=== PATIENT | female | born 1955 | race Caucasian/White ===

== ENCOUNTER 2023-10-26 16:44 | Emergency (ER) | payer MEDICARE, OTHER, SELFPAY ==
[2023-10-26 16:48] VITALS: BP 128/73
[2023-10-26] MEDS: COMPAZINE 10 MG IV (17:47)
[2023-10-26] MEDS: MORPHINE SULFATE 2 MG IV (17:48)
[2023-10-26] MEDS: DECADRON 10 MG PO (18:46)
--- NOTE | 2023-10-26 20:05 | ED.MUSCINJ ---
HPI-Injury
General
Chief Complaint: Musculo-Skeletal Complaint
Source: patient
Exam Limitations: none
Time Seen by Provider: 10/26/23 17:25
Nursing documentation reviewed up to this point in time: agreed with
Travel History
Have you had any contact with someone who has COVID-19?: No
Do you have any symptoms of coronavirus? Fever > 100 degrees, chills, cough, shortness of breath, sore throat, loss of taste or smell, muscle aches, or headache?: No
History of Present Illness-Injury
Is this injury a work related problem?: No
Is pt an associate of [facility]?: No
Initial Injury comments:
Patient to ED with complaint of left lateral hip pain x 2 weeks. No history of trauma. Had LTHR 2 years ago. No issues until 2 weeks ago. States leg is giving out due to the pain. Brought to ED by spouse for eval.
Past History
Past History
ED Past Medical History: Asthma, Fibromyalgia, GERD, HTN, Valvular disease (MR), Psychiatric (anxiety), Other (Mitral regurgitation) and Other (DVT, migraine headaches)
ED Past Surgical History: Appendectomy, Cardiac (MV replacement ([facility])) and Orthopedic
Social History
Tobacco: Smoker (Occasional cigarette use)
Alcohol: Daily (1-2 glasses of wine with dinner)
Drug: None
Personal:
Living: with family
Employment: Employed
Family History
Family History: Hypertension
Review of Systems
Review of Systems
Allergies reviewed?: Yes
All Other Systems: ROS reviewed and negative except as documented in HPI and ROS
Constitutional: Reports no symptoms
Musculoskeletal: Reports joint pain (pain to left lateral hip)
Skin: Reports no symptoms
Neurological: Reports no symptoms
Psychiatric: Reports no symptoms
Musculoskeletal Injury Exam
Musculoskeletal Injury Exam
Left Lateral Hip:
Pain with Movement?: Moderate
Tender to palpation?: Moderate
Soft tissue swelling?: None
External deformity and angulation?: None
Joint effusion?: None
Contusion?: None
Hematoma-local bleeding into tissue?: None
Strain- Sprain- Tear (Connective tissue injury)?: None
Crepitus with movement?: No
Joint instability?: No
Malalignment/deformity?: No
Range of motion: Full
Distal skin color and temperature: normal-warm & good color
Capillary Refill: normal
Normal distal neurovascular exam?: Yes
Peripheral Pulses: posterior tibial (left): 3+ and dorsalis pedis (left): 3+
Phy Exam
General Physical Exam
General Presentation: well appearing and mild distress
General age: appears stated age
General Skin: warm and dry
General Habitus: normal
General Mental: alert
Musculoskeletal Exam
Musculoskeletal Exam: full ROM, neuro vasc intact and other (No redness or swelling to left hip. No skin rash.)
Skin Exam
Skin Exam: normal color, warm/dry and no rash
Psychiatric Exam
Psychiatric Exam: normal mood/affect
Injury Course
Orders/Labs/Results
Orders:
Orders
10/26/23 17:30
Morphine Sulfate 2 mg IV NOW STA
Prochlorperazine [Compazine] 10 mg IV NOW STA
10/26/23 17:31
Hip, Left 2-3 Views [CR Hip - LT w/wo Pel 2-3 Vw*] Urgent
Comment:
Reason For Exam: pain
Include a pelvis x-ray?: Yes
10/26/23 18:24
Dexamethasone Pf [Decadron] 10 mg PO NOW STA
*Radiology
Radiology exam reviewed: radiology read reviewed
*Pulse Oximetry
Patient hypoxic: no
*Critical Care Note
Total Time (30-74mins, 75-104mins- exclusive of procedures): Not Applicable
Update Note
Update Note:
Improved with pain medication. She is discharged home and will follow upw [facility] ortho this week.
ED Attending Note
-
Portions of this chart may have been created with voice recognition software.� Occasional wrong word or��sound alike� substitutions may have occurred due to the inherent limitations of voice recognition software.
Discharge Plan
Departure
Patient Disposition: Home (Routine Discharge)
Date of Disposition: 10/26/23
Time of Disposition: 18:24
Patient with high blood pressure during this ER visit?: No
Condition: Good
Covid-19: Not Applicable
Discharge Problem:
Bursitis, hip
Instructions: Hip Bursitis (DC), Using Cold for Pain
Prescriptions:
New
prednisone 20 mg tablet
40 mg PO DAILY Qty: 8 0RF
hydromorphone [Dilaudid] 2 mg tablet
2 mg PO Q6H PRN (Reason: Pain) Qty: 8 0RF
prochlorperazine maleate [Compazine] 10 mg tablet
10 mg PO TID PRN (Reason: nausea and vomiting) Qty: 6 0RF
No Action
Combivent Respimat 1 PUFF mist
2 puff inhalation DAILYPRN PRN (Reason: SHORTNESS OF BREATH)
amlodipine 5 MG tablet
5 mg PO DAILY
gabapentin 300 MG capsule
1,200 mg PO HS
gabapentin 300 MG capsule
600 mg PO DAILY
escitalopram oxalate 20 MG tablet
20 mg PO DAILY
warfarin [Jantoven] 2 MG tablet
4 mg PO DAILY
Patient Comments:
Per patient: she tests her INR at home and calls in to get adjusted dosing - very inconconsistent. Goal INR 3 - 3.5 per patient
esomeprazole magnesium [Nexium] 40 MG capsule,delayed release(DR/EC)
40 mg PO DAILYPRN PRN (Reason: gerd)
alprazolam 0.25 MG tablet
0.25 mg PO BIDPRN PRN (Reason: anxiety)
Patient Comments:
11/10/2020: last filled 08/06/20, 30 tabs for 15 days from [facility]
aspirin 81 MG tablet,chewable
81 mg PO DAILY 0RF
enoxaparin 60 MG/0.6 ML syringe
60 mg SC Q12H 2 Days Qty: 4 0RF
Rx Instructions:
Preop
hydromorphone [Dilaudid] 2 mg tablet
2 mg PO Q6H PRN (Reason: pain) Qty: 8 0RF
cetirizine [Zyrtec] 10 mg Tablet
10 mg PO DAILY
acetaminophen 500 mg Tablet
1,000 mg PO Q6H PRN (Reason: pain)
doxycycline hyclate 100 mg tablet
100 mg PO DAILY
clonazepam 0.5 mg tablet
0.5 mg PO TID PRN (Reason: anxiety) Qty: 20 0RF
Referrals:
Kurt Priest MD [Active] - Call in 1-3 days for appt
Interventions
Interventions:
*Risk Screen - Suicide Last Done: 10/26/23 18:00
*General Assessment Last Done: 10/26/23 18:00
*Neglect/Abuse Screening Last Done: 10/26/23 18:00
ED- Fall Risk Assessment Last Done: 10/26/23 18:00
*ED COVID-19 Vaccine History Last Done: 10/26/23 16:48
*Nursing Disposition Last Done: 10/26/23 19:01
ED-Musculoskeletal Assessment Last Done: 10/26/23 18:00
Discharge Date and Time
Discharge Date/Time: 10/26/23 19:02
Print Language: UZBEK
== END 2023-10-26 19:02 | disposition home or self-care (01) ==
LOC: EMR 16:44
PROVIDERS: EMERGENCY PHYSICIAN Emergency Medicine; FAMILY PHYSICIAN Internal Medicine
DX: M70.72 Other bursitis of hip, left hip (principal); J45.909 Unspecified asthma, uncomplicated; M79.7 Fibromyalgia; K21.9 Gastro-esophageal reflux disease without esophagitis; I10 Essential (primary) hypertension; I38 Endocarditis, valve unspecified; F41.9 Anxiety disorder, unspecified
CPT/HCPCS: 99283; 96374; 96375; 73502

== ENCOUNTER 2024-02-11 13:05 | Emergency (ER) | payer MEDICARE, OTHER, SELFPAY ==
[2024-02-11 13:07] VITALS: BP 135/70
[2024-02-11 15:22] VITALS: BMI 24.6
[2024-02-11] MEDS: DECADRON 10 MG IV (15:34)
[2024-02-11] MEDS: ZOFRAN 4 MG IV (15:34)
[2024-02-11] MEDS: DILAUDID 0.5 MG IV (15:34)
[2024-02-11 15:40] VITALS: BP 143/74
[2024-02-11 15:49] LABS: % Basophils 0.6 % (0-2); % Eosinophils 1.4 % (0-6); % Immature Granulocytes 0.3 % (0-0.5); % Monocytes 8.2 % (1.7-9.3); % Neutrophils 67.5 % (42.2-75.2); Absolute Basophils 0.1 10^3/uL (0-0.2); Absolute Eosinophils 0.1 10^3/uL (0-0.7); Absolute Lymphocytes 1.7 10^3/uL (1.2-3.4); Absolute Monocytes 0.6 10^3/uL (0.1-0.6); Absolute Neutrophils 5.3 10^3/uL (1.4-6.5); Hematocrit 37.4 % (37.0-47.0); Hemoglobin 12.9 g/dL (12.0-16.0); Mean Corp Hgb Conc. 34.5 g/dL (33.0-37.0); Mean Corpuscular Hgb 32.7 pg (27.0-31.0); Mean Corpuscular Volume 94.7 fL (81.0-99.0); Nucleated Red Blood Cells % 0 %; Platelet Count 397 10^3/uL (130-400); Red Blood Cell Count 3.95 10^6/uL (4.20-5.40); Red Cell Dist. Width 12.3 % (11.5-14.5); White Blood Cell Count 7.8 10^3/uL (4.8-10.8)
[2024-02-11 16:00] VITALS: BP 127/65
[2024-02-11 16:04] LABS: ALT (SGPT) 17 U/L (0-35); AST (SGOT) 28 U/L (14-36); Albumin 4.7 g/dl (3.5-5.0); Alkaline Phosphatase 84 U/L (38-126); Blood Urea Nitrogen 14 mg/dl (7-17); Calcium 10.2 mg/dl (8.4-10.2); Carbon Dioxide 27 mmol/L (22-30); Chloride 102 mmol/L (98-107); Estimated Creatinine Clearance 76 ml/min; Glucose 92 mg/dl (70-99); Potassium 4.3 mmol/L (3.5-5.1); Sodium 140 mmol/L (135-145); Total Protein 7.1 g/dl (6.3-8.2); eGFR > 60.00
--- NOTE | 2024-02-11 21:23 | ED.MUSCINJ ---
HPI-Injury
General
Chief Complaint: Fall
Source: patient
Exam Limitations: none
Time Seen by Provider: 02/11/24 15:16
Nursing documentation reviewed up to this point in time: agreed with
History of Present Illness-Injury
Is this injury a work related problem?: No
Is pt an associate of [facility]?: No
Initial Injury comments:
Patient reports trip and fall 1 week ago. Since then she has progressively worse pain to left hip/buttock radiating down right leg. Brought to ED by spouse for eval.
Past History
Past History
ED Past Medical History: Asthma, Fibromyalgia, GERD, HTN, Valvular disease (MR), Psychiatric (anxiety), Other (Mitral regurgitation) and Other (DVT, migraine headaches)
ED Past Surgical History: Appendectomy, Cardiac (MV replacement ([facility])) and Orthopedic
Social History
Tobacco: Smoker (Occasional cigarette use)
Alcohol: Daily (1-2 glasses of wine with dinner)
Drug: None
Personal:
Living: with family
Employment: Employed
Family History
Family History: Hypertension
Musculoskeletal Injury Exam
Musculoskeletal Injury Exam
Left Hip:
Pain with Movement?: Moderate
Tender to palpation?: Moderate
Soft tissue swelling?: None
External deformity and angulation?: None
Joint effusion?: None
Contusion?: Moderate
Hematoma-local bleeding into tissue?: None
Strain- Sprain- Tear (Connective tissue injury)?: Moderate
Crepitus with movement?: No
Joint instability?: No
Malalignment/deformity?: No
Range of motion: Full
Distal skin color and temperature: normal-warm & good color
Capillary Refill: normal
Normal distal neurovascular exam?: Yes
Peripheral Pulses: posterior tibial (left): 3+ and dorsalis pedis (left): 3+
Phy Exam
General Physical Exam
General Presentation: well appearing and mild distress
General age: appears stated age
General Skin: warm and dry
General Habitus: normal
General Mental: alert
Musculoskeletal Exam
Musculoskeletal Exam: full ROM, neuro vasc intact and other (NO swelling or bruising to left hip/buttock)
Skin Exam
Skin Exam: normal color, warm/dry and no rash
Psychiatric Exam
Psychiatric Exam: normal mood/affect
Injury Course
Orders/Labs/Results
Orders:
Orders
02/11/24 15:22
Dexamethasone Sod Phosphate [Decadron] 10 mg IV NOW STA
Ondansetron Injectable [Zofran] 4 mg IV NOW STA
02/11/24 15:23
HYDROmorphone [Dilaudid] 0.5 mg IV NOW STA
02/11/24 15:24
Hip, Left 2-3 Views [CR Hip - LT w/wo Pel 2-3 Vw*] Urgent
Comment:
Reason For Exam: fall
Include a pelvis x-ray?: Yes
02/11/24 15:26
Complete Blood Count/With Diff Urgent
Comprehensive Metabolic Panel Urgent
Abnormal Lab Results
02/11/24
15:26
RBC 3.95 L 10^6/uL
(4.20-5.40)
MCH 32.7 H pg
(27.0-31.0)
02/11/24 15:26
02/11/24 15:26
*Radiology
Radiology exam reviewed: radiology read reviewed
*Pulse Oximetry
Patient hypoxic: no
*Critical Care Note
Total Time (30-74mins, 75-104mins- exclusive of procedures): Not Applicable
ED Attending Note
-
Portions of this chart may have been created with voice recognition software.� Occasional wrong word or��sound alike� substitutions may have occurred due to the inherent limitations of voice recognition software.
Discharge Plan
Departure
Patient Disposition: Home (Routine Discharge)
Date of Disposition: 02/11/24
Time of Disposition: 17:29
Patient with high blood pressure during this ER visit?: No
Condition: Good
Covid-19: Not Applicable
Discharge Problem:
Sciatic nerve pain
Instructions: Sciatica (DC), Preventing falls in adults, Using Cold for Pain
Prescriptions:
New
hydromorphone [Dilaudid] 2 mg tablet
2 mg PO Q6H PRN (Reason: Pain) Qty: 8 0RF
prednisone 20 mg tablet
40 mg PO DAILY Qty: 8 0RF
No Action
Combivent Respimat 1 PUFF mist
2 puff inhalation DAILYPRN PRN (Reason: SHORTNESS OF BREATH)
amlodipine 5 MG tablet
5 mg PO DAILY
gabapentin 300 MG capsule
1,200 mg PO HS
gabapentin 300 MG capsule
600 mg PO DAILY
escitalopram oxalate 20 MG tablet
20 mg PO DAILY
warfarin [Jantoven] 2 MG tablet
4 mg PO DAILY
Patient Comments:
Per patient: she tests her INR at home and calls in to get adjusted dosing - very inconconsistent. Goal INR 3 - 3.5 per patient
esomeprazole magnesium [Nexium] 40 MG capsule,delayed release(DR/EC)
40 mg PO DAILYPRN PRN (Reason: gerd)
alprazolam 0.25 MG tablet
0.25 mg PO BIDPRN PRN (Reason: anxiety)
Patient Comments:
11/10/2020: last filled 08/06/20, 30 tabs for 15 days from [facility]
aspirin 81 MG tablet,chewable
81 mg PO DAILY 0RF
enoxaparin 60 MG/0.6 ML syringe
60 mg SC Q12H 2 Days Qty: 4 0RF
Rx Instructions:
Preop
hydromorphone [Dilaudid] 2 mg tablet
2 mg PO Q6H PRN (Reason: pain) Qty: 8 0RF
cetirizine [Zyrtec] 10 mg Tablet
10 mg PO DAILY
acetaminophen 500 mg Tablet
1,000 mg PO Q6H PRN (Reason: pain)
doxycycline hyclate 100 mg tablet
100 mg PO DAILY
clonazepam 0.5 mg tablet
0.5 mg PO TID PRN (Reason: anxiety) Qty: 20 0RF
prednisone 20 mg tablet
40 mg PO DAILY Qty: 8 0RF
hydromorphone [Dilaudid] 2 mg tablet
2 mg PO Q6H PRN (Reason: Pain) Qty: 8 0RF
prochlorperazine maleate [Compazine] 10 mg tablet
10 mg PO TID PRN (Reason: nausea and vomiting) Qty: 6 0RF
Referrals:
Giulia Lindo MD [Family Provider] - Follow up in 2-3 days
Interventions
Interventions:
*Risk Screen - Suicide Last Done: 02/11/24 15:58
*General Assessment Last Done: 02/11/24 15:22
*Neglect/Abuse Screening Last Done: 02/11/24 15:58
ED- Fall Risk Assessment Last Done: 02/11/24 14:55
*ED COVID-19 Vaccine History Last Done: 02/11/24 15:58
*Nursing Disposition Last Done: 02/11/24 17:45
ED-Musculoskeletal Assessment Last Done: 02/11/24 14:55
ED- Neurological Assessment Last Done: 02/11/24 14:55
ED-Skin Assessment Last Done: 02/11/24 14:55
Discharge Date and Time
Discharge Date/Time: 02/11/24 17:45
Print Language: PALAUAN
== END 2024-02-11 17:45 | disposition home or self-care (01) ==
LOC: EMR 13:05
PROVIDERS: Nurse Practitioner; EMERGENCY PHYSICIAN Emergency Medicine; FAMILY PHYSICIAN Internal Medicine
DX: M54.32 Sciatica, left side (principal); I10 Essential (primary) hypertension; J45.909 Unspecified asthma, uncomplicated; K21.9 Gastro-esophageal reflux disease without esophagitis; Z86.718 Personal history of other venous thrombosis and embolism; M79.7 Fibromyalgia; F17.210 Nicotine dependence, cigarettes, uncomplicated
CPT/HCPCS: 99284; 96374; 96375; 73502; 80053; 85025

== ENCOUNTER → 2024-02-19 12:13 | Outpatient (REF) | payer MEDICARE, OTHER, SELFPAY ==
[2024-02-19 13:04] LABS: % Basophils 0.1 % (0-2); % Immature Granulocytes 0.4 % (0-0.5); % Lymphocytes 9.8 % (20.5-51.1); % Monocytes 4.3 % (1.7-9.3); % Neutrophils 85.4 % (42.2-75.2); Absolute Lymphocytes 0.9 10^3/uL (1.2-3.4); Absolute Monocytes 0.4 10^3/uL (0.1-0.6); Absolute Neutrophils 8.1 10^3/uL (1.4-6.5); Hematocrit 39.4 % (37.0-47.0); Hemoglobin 13.2 g/dL (12.0-16.0); Mean Corp Hgb Conc. 33.5 g/dL (33.0-37.0); Mean Corpuscular Hgb 32.2 pg (27.0-31.0); Mean Corpuscular Volume 96.1 fL (81.0-99.0); Mean Platelet Volume 10.9 fL (7.4-10.4); Nucleated Red Blood Cells % 0 %; Platelet Count 434 10^3/uL (130-400); White Blood Cell Count 9.4 10^3/uL (4.8-10.8)
[2024-02-19 13:40] LABS: Albumin 4.8 g/dl (3.5-5.0); Blood Urea Nitrogen 18 mg/dl (7-17); Calcium 10.5 mg/dl (8.4-10.2); Carbon Dioxide 27 mmol/L (22-30); Chloride 102 mmol/L (98-107); Glucose 112 mg/dl (70-99); Phosphorus 3.2 mg/dl (2.5-4.5); Potassium 5.6 mmol/L (3.5-5.1); Sodium 139 mmol/L (135-145); Total Cholesterol 299 mg/dl (50-199); Triglyceride 126 mg/dl (10-149); Very Low Density Lipoprotein 25 mg/dl (0-30); eGFR > 60.00
[2024-02-19 13:51] LABS: HDL Cholesterol 132 mg/dl; LDL Cholesterol, Calculated 142 mg/dl
== END ==
LOC: RCS 12:13
PROVIDERS: ATTENDING PHYSICIAN Internal Medicine Cardiovascular Disease; FAMILY PHYSICIAN Internal Medicine
DX: R00.2 Palpitations (principal); Z95.2 Presence of prosthetic heart valve; Z79.01 Long term (current) use of anticoagulants; I34.0 Nonrheumatic mitral (valve) insufficiency; I10 Essential (primary) hypertension; Z01.89 Encounter for other specified special examinations
CPT/HCPCS: 36415; 80061; 80069; 85025; 93225; 93226

== ENCOUNTER 2024-03-09 12:51 | Emergency (ER) | payer MEDICARE, OTHER, SELFPAY ==
[2024-03-09 12:56] VITALS: BP 133/77
[2024-03-09] MEDS: DECADRON 10 MG IV (14:50)
[2024-03-09] MEDS: DILAUDID 1 MG IV (14:51)
[2024-03-09 15:00] LABS: % Basophils 0.4 % (0-2); % Eosinophils 1.8 % (0-6); % Immature Granulocytes 0.4 % (0-0.5); % Lymphocytes 17.4 % (20.5-51.1); % Monocytes 7.2 % (1.7-9.3); % Neutrophils 72.8 % (42.2-75.2); Absolute Eosinophils 0.2 10^3/uL (0-0.7); Absolute Lymphocytes 1.6 10^3/uL (1.2-3.4); Absolute Monocytes 0.7 10^3/uL (0.1-0.6); Absolute Neutrophils 6.5 10^3/uL (1.4-6.5); Hematocrit 37.8 % (37.0-47.0); Hemoglobin 13.1 g/dL (12.0-16.0); Mean Corp Hgb Conc. 34.7 g/dL (33.0-37.0); Mean Corpuscular Volume 95.2 fL (81.0-99.0); Mean Platelet Volume 10.6 fL (7.4-10.4); Nucleated Red Blood Cells % 0 %; Platelet Count 276 10^3/uL (130-400); Red Blood Cell Count 3.97 10^6/uL (4.20-5.40); Red Cell Dist. Width 12.8 % (11.5-14.5)
[2024-03-09 15:04] LABS: INR 4.01; PT 39.1 Sec (11.4-14.6)
[2024-03-09 15:18] LABS: C-Reactive Protein < 5.00 mg/L (0.0-10.00)
[2024-03-09 15:22] LABS: Blood Urea Nitrogen 23 mg/dl (7-17); Carbon Dioxide 26 mmol/L (22-30); Chloride 105 mmol/L (98-107); Glucose 92 mg/dl (70-99); Sodium 140 mmol/L (135-145); eGFR > 60.00
[2024-03-09 15:41] LABS: ALT (SGPT) 25 U/L (0-35); AST (SGOT) 29 U/L (14-36); Albumin 4.5 g/dl (3.5-5.0); Alkaline Phosphatase 84 U/L (38-126); Direct Bilirubin 0.2 mg/dl (0.0-0.4); Potassium 4.3 mmol/L (3.5-5.1); Total Bilirubin 2.3 mg/dl (0.2-1.3); Total Protein 6.8 g/dl (6.3-8.2)
[2024-03-09 15:46] LABS: Erythrocyte Sed Rate 15 mm/hour (0-20)
--- NOTE | 2024-03-09 18:07 | ED.GENMED ---
History of Present Illness
General
Chief Complaint: Back Pain
Source: patient
Exam Limitations: none
Time Seen by Provider: 03/09/24 14:02
History of Present Illness
History of Present Illness:
69-year-old female presents complaining of left hip pain and groin pain occasion the pain radiates to the foot. She also notes a slight amount of lower back pain. No bowel or bladder dysfunction. She is due to see orthopedics and due for an MRI
in 13 days. She states her pain is too significant to wait that long. She denies any bowel or bladder dysfunction. No fever. She does note she fell 2 days ago.
Past History
Past History
ED Past Medical History: Asthma, Fibromyalgia, GERD, HTN, Valvular disease (MR), Psychiatric (anxiety), Other (Mitral regurgitation) and Other (DVT, migraine headaches)
ED Past Surgical History: Appendectomy, Cardiac (MV replacement ([facility])) and Orthopedic
Social History
Tobacco: Smoker (Occasional cigarette use)
Alcohol: Daily (1-2 glasses of wine with dinner)
Drug: None
Personal:
Living: with family
Employment: Employed
Family History
Family History: Hypertension
Phy Exam
Physical Exam
Physical Exam:
General: Well-appearing female no acute respiratory
HEENT: Normocephalic atraumatic
Heart: Regular rate and rhythm no murmur
Lungs: Clear no wheeze
Musculoskeletal exam: Left leg tender anteriorly over the hip as well as laterally over the hip.Lumbar spine is nontender to palpation
Vascular: 2+ dorsalis pedis pulse left foot
Course
Orders/Labs/Results
Orders:
Orders
03/09/24 14:29
CT Pelvis With Iv Contrast Urgent
Comment:
Reason For Exam: left hip pain, swelling
Dexamethasone Sod Phosphate [Decadron] 10 mg IV NOW STA
HYDROmorphone [Dilaudid] 1 mg IV NOW STA
03/09/24 14:40
Basic Metabolic Panel Urgent
CRP [C-Reactive Protein] Urgent
Complete Blood Count/With Diff Urgent
Sed Rate [Erythrocyte Sed Rate] Urgent
03/09/24 14:47
PT/INR [Prothrombin Time] Urgent
03/09/24 15:26
Gvyub-Wckk-Bryyuhn Urgent
Potassium Urgent
Abnormal Lab Results
03/09/24 03/09/24 03/09/24
14:40 14:47 15:26
RBC 3.97 L 10^6/uL
(4.20-5.40)
MCH 33.0 H pg
(27.0-31.0)
MPV 10.6 H fL
(7.4-10.4)
Absolute Monos (auto) 0.7 H 10^3/uL
(0.1-0.6)
Lymphocytes % 17.4 L %
(20.5-51.1)
PT 39.1 H Sec
(11.4-14.6)
BUN 23 H mg/dl
(7-17)
Total Bilirubin 2.3 H mg/dl
(0.2-1.3)
03/09/24 14:40
03/09/24 15:26
Vital Signs
Initial and Last Documented VS:
Initial Vital Signs
Temp Pulse Resp BP Pulse Ox
98.0 F 86 16 133/77 98
03/09/24 12:56 03/09/24 12:56 03/09/24 12:56 03/09/24 12:56 03/09/24 12:56
Last Documented Vital Signs
Temp Pulse Resp BP Pulse Ox
98.0 F 86 16 133/77 98
03/09/24 12:56 03/09/24 12:56 03/09/24 12:56 03/09/24 12:56 03/09/24 12:56
MDM/Problems Addressed
Differential Diagnosis Includes:
Patient with left hip and leg pain. Question inflammatory condition such as bursitis versus fracture versus radiculopathy. Do not suspect septic arthritis given lack of fever. Will check labs and inflammatory markers. CT of the pelvis pending.
*Critical Care Note
Total Time (30-74mins, 75-104mins- exclusive of procedures): Not Applicable
Update Note
Update Note:
CT of pelvis negative for acute finding. Labs reviewed. INR is 4. Patient notified of her INR. Patient feeling much better after medication here. Will provide walker for patient. She will continue to follow-up orthopedics. Will add Flexeril
and prednisone to her regimen at home
ED Attending Note
-
Portions of this chart may have been created with voice recognition software.� Occasional wrong word or��sound alike� substitutions may have occurred due to the inherent limitations of voice recognition software.
Discharge Plan
Departure
Patient Disposition: Home (Routine Discharge)
Date of Disposition: 03/09/24
Time of Disposition: 18:07
Patient with high blood pressure during this ER visit?: No
Discharge Problem:
Acute hip pain
Instructions: Sciatica (DC), Muscle and bone pain - Discharge instructions
Prescriptions:
New
cyclobenzaprine 10 mg tablet
10 mg PO TID PRN (Reason: spasm) Qty: 10 0RF
prednisone 10 mg Tablet
See Rx Instructions .ROUTE .COMPLEX Qty: 30 0RF
Rx Instructions:
Take By Mouth:
40 mg daily x3 days, 30 mg daily x3 days,
20 mg daily x3 days, 10 mg daily x3 days.
No Action
Combivent Respimat 1 PUFF mist
2 puff inhalation DAILYPRN PRN (Reason: SHORTNESS OF BREATH)
amlodipine 5 MG tablet
5 mg PO DAILY
gabapentin 300 MG capsule
1,200 mg PO HS
gabapentin 300 MG capsule
600 mg PO DAILY
escitalopram oxalate 20 MG tablet
20 mg PO DAILY
warfarin [Jantoven] 2 MG tablet
4 mg PO DAILY
Patient Comments:
Per patient: she tests her INR at home and calls in to get adjusted dosing - very inconconsistent. Goal INR 3 - 3.5 per patient
esomeprazole magnesium [Nexium] 40 MG capsule,delayed release(DR/EC)
40 mg PO DAILYPRN PRN (Reason: gerd)
alprazolam 0.25 MG tablet
0.25 mg PO BIDPRN PRN (Reason: anxiety)
Patient Comments:
11/10/2020: last filled 08/06/20, 30 tabs for 15 days from [facility]
aspirin 81 MG tablet,chewable
81 mg PO DAILY 0RF
enoxaparin 60 MG/0.6 ML syringe
60 mg SC Q12H 2 Days Qty: 4 0RF
Rx Instructions:
Preop
hydromorphone [Dilaudid] 2 mg tablet
2 mg PO Q6H PRN (Reason: pain) Qty: 8 0RF
cetirizine [Zyrtec] 10 mg Tablet
10 mg PO DAILY
acetaminophen 500 mg Tablet
1,000 mg PO Q6H PRN (Reason: pain)
doxycycline hyclate 100 mg tablet
100 mg PO DAILY
clonazepam 0.5 mg tablet
0.5 mg PO TID PRN (Reason: anxiety) Qty: 20 0RF
prednisone 20 mg tablet
40 mg PO DAILY Qty: 8 0RF
hydromorphone [Dilaudid] 2 mg tablet
2 mg PO Q6H PRN (Reason: Pain) Qty: 8 0RF
prochlorperazine maleate [Compazine] 10 mg tablet
10 mg PO TID PRN (Reason: nausea and vomiting) Qty: 6 0RF
hydromorphone [Dilaudid] 2 mg tablet
2 mg PO Q6H PRN (Reason: Pain) Qty: 8 0RF
prednisone 20 mg tablet
40 mg PO DAILY Qty: 8 0RF
Referrals:
Mia Maxwell I., DO [Family Provider] -
Activity Restrictions/Additional Instructions:
Use walker for ambulation. Use flexeril as needed and prednisone as directed. Continue to follow up with orthopedics.
Interventions
Interventions:
*Risk Screen - Suicide Last Done: 03/09/24 12:56
*General Assessment Last Done: 03/09/24 17:54
*Neglect/Abuse Screening Last Done: 03/09/24 12:56
*ED COVID-19 Vaccine History Last Done: 03/09/24 17:54
Discharge Date and Time
Print Language: ARGENTINE
[2024-03-09 18:32] VITALS: BP 126/77
== END 2024-03-09 18:35 | disposition home or self-care (01) ==
LOC: EMR 12:51
PROVIDERS: Physician Assistant; EMERGENCY PHYSICIAN Student in an Organized Health Care Education/Training Program; FAMILY PHYSICIAN Orthopaedic Surgery
DX: M25.552 Pain in left hip (principal); M54.50 Low back pain, unspecified; R10.30 Lower abdominal pain, unspecified; W19.XXXA Unspecified fall, initial encounter; I10 Essential (primary) hypertension; K21.9 Gastro-esophageal reflux disease without esophagitis; M79.7 Fibromyalgia; F41.9 Anxiety disorder, unspecified; J45.909 Unspecified asthma, uncomplicated; G43.909 Migraine, unspecified, not intractable, without status migrainosus; F17.210 Nicotine dependence, cigarettes, uncomplicated; Z86.718 Personal history of other venous thrombosis and embolism; Z88.5 Allergy status to narcotic agent; Z88.0 Allergy status to penicillin; Z88.8 Allergy status to other drugs, medicaments and biological substances; Z88.1 Allergy status to other antibiotic agents; Z91.030 Bee allergy status
CPT/HCPCS: 99284; 96374; 96375; 72193; 80048; 80076; 84132; 85025; 85610; 85652; 86140; Q9967

== ENCOUNTER → 2024-03-22 11:37 | Outpatient (REF) | payer MEDICARE, OTHER, SELFPAY | LOC: MRI 11:37 | PROVIDERS: ATTENDING PHYSICIAN Orthopaedic Surgery; FAMILY PHYSICIAN Internal Medicine; REFERRING PHYSICIAN Internal Medicine | DX: M54.16 Radiculopathy, lumbar region (principal) | CPT/HCPCS: 72148 ==

== ENCOUNTER 2024-05-27 05:58 | Emergency (ER) | payer MEDICARE, OTHER, SELFPAY ==
[2024-05-27 06:00] VITALS: BP 120/84
[2024-05-27 07:30] VITALS: BMI 23.5
[2024-05-27 07:36] LABS: % Basophils 0.3 % (0-2); % Eosinophils 0.9 % (0-6); % Immature Granulocytes 0.5 % (0-0.5); % Lymphocytes 14.3 % (20.5-51.1); % Monocytes 6.5 % (1.7-9.3); % Neutrophils 77.5 % (42.2-75.2); Absolute Eosinophils 0.1 10^3/uL (0-0.7); Absolute Lymphocytes 0.9 10^3/uL (1.2-3.4); Absolute Monocytes 0.4 10^3/uL (0.1-0.6); Absolute Neutrophils 5.1 10^3/uL (1.4-6.5); Hematocrit 39.9 % (37.0-47.0); Mean Corp Hgb Conc. 35.1 g/dL (33.0-37.0); Mean Corpuscular Hgb 31.7 pg (27.0-31.0); Mean Corpuscular Volume 90.3 fL (81.0-99.0); Mean Platelet Volume 10.8 fL (7.4-10.4); Nucleated Red Blood Cells % 0 %; Platelet Count 322 10^3/uL (130-400); Red Blood Cell Count 4.42 10^6/uL (4.20-5.40); Red Cell Dist. Width 11.9 % (11.5-14.5); White Blood Cell Count 6.6 10^3/uL (4.8-10.8)
[2024-05-27 07:56] LABS: ALT (SGPT) 28 U/L (0-35); AST (SGOT) 40 U/L (14-36); Albumin 4.3 g/dl (3.5-5.0); Alkaline Phosphatase 69 U/L (38-126); Blood Urea Nitrogen 17 mg/dl (7-17); Calcium 8.7 mg/dl (8.4-10.2); Carbon Dioxide 23 mmol/L (22-30); Chloride 106 mmol/L (98-107); Estimated Creatinine Clearance 65 ml/min; Glucose 113 mg/dl (70-99); Lipase 69 U/L (23-300); Potassium 3.3 mmol/L (3.5-5.1); Sodium 139 mmol/L (135-145); Total Bilirubin 1.3 mg/dl (0.2-1.3); Total Protein 6.5 g/dl (6.3-8.2); eGFR > 60.00
--- NOTE | 2024-05-27 08:04 | ED.GENMED ---
History of Present Illness
<ROE Graves - Last Filed: 05/27/24 11:28>
General
Chief Complaint: Abdominal Symptoms
Source: patient
Exam Limitations: none
Time Seen by Provider: 05/27/24 07:21
Nursing documentation reviewed up to this point in time: agreed with
History of Present Illness
History of Present Illness:
Patient is a 69-year-old female who presents to the ER for evaluation. Patient reports she has been sick for the past 4 days with intermittent vomiting diarrhea. She however complains of a lot of abdominal pain most of the left side which radiates
to her back does report she has a history of diverticulitis and colitis in the past. She was up all night last night with diarrhea. She has had intermittent fevers. She reports she feels very dehydrated
Past History
<ROE Graves - Last Filed: 05/27/24 11:28>
Past History
ED Past Medical History: Asthma, Fibromyalgia, GERD, HTN, Valvular disease (MR), Psychiatric (anxiety), Other (Mitral regurgitation) and Other (DVT, migraine headaches)
ED Past Surgical History: Appendectomy, Cardiac (MV replacement ([facility])) and Orthopedic
Social History
Tobacco: Smoker (Occasional cigarette use)
Alcohol: Daily (1-2 glasses of wine with dinner)
Drug: None
Personal:
Living: with family
Employment: Employed
Family History
Family History: Hypertension
Review of Systems
<ROE Graves - Last Filed: 05/27/24 11:28>
Review of Systems
Allergies reviewed?: Yes
All Other Systems: ROS reviewed and negative except as documented in HPI and ROS
Constitutional: Reports fever and chills
EENT: Reports no symptoms
Respiratory: Reports no symptoms
Cardiac: Reports no symptoms
ABD/GI: Reports abdominal pain, nausea, vomiting and diarrhea
: Reports no symptoms
Musculoskeletal: Reports no symptoms
Skin: Reports no symptoms
Neurological: Reports no symptoms
Psychiatric: Reports no symptoms
Phy Exam
<ROE Graves - Last Filed: 05/27/24 11:28>
General Physical Exam
General Presentation: no apparent distress
General age: appears stated age
General Skin: warm and dry
General Habitus: normal
General Mental: alert
General Hydration: dry mucous membranes
Cardiovascular Exam
Cardiovascular Exam: regular rate/rhythm, no murmur and normal peripheral pulses
Pulmonary Exam
Pulmonary Exam: lungs clear and no respiratory distress
Neurological Exam
Neurological Exam: alert and oriented x3
Musculoskeletal Exam
Musculoskeletal Exam: full ROM
Skin Exam
Skin Exam: normal color and warm/dry
Psychiatric Exam
Psychiatric Exam: normal mood/affect
Course
<ROE Graves - Last Filed: 05/27/24 11:28>
Orders/Labs/Results
Orders:
Orders
05/27/24 07:29
Complete Blood Count/With Diff Urgent
Comprehensive Metabolic Panel Urgent
Lipase Urgent
05/27/24 08:09
CT Abd/pel W Iv And Oral Contr Urgent
Comment:
Reason For Exam: left sided abd pain hx of diveritcil/colitis
Iohexol [Omnipaque] See Protocol PO NOW STA
05/27/24 08:10
Morphine Sulfate 2 mg IV NOW STA
05/27/24 08:11
0.9% Sodium Chloride 1000 ml [Nss] 1,000 ml IV BOLUS
Ondansetron Injectable [Zofran] 4 mg IV NOW STA
05/27/24 08:13
UA Reflex to Culture [Urinalysis Reflex To Culture] Urgent
05/27/24 08:33
PT/INR [Prothrombin Time] Urgent
05/27/24 09:52
Potassium Chloride [KCl] 40 meq PO NOW STA
Abnormal Lab Results
05/27/24 05/27/24
07:29 08:33
MCH 31.7 H pg
(27.0-31.0)
MPV 10.8 H fL
(7.4-10.4)
Absolute Lymphs (auto) 0.9 L 10^3/uL
(1.2-3.4)
Neutrophils % 77.5 H %
(42.2-75.2)
Lymphocytes % 14.3 L %
(20.5-51.1)
PT 34.7 H Sec
(11.4-14.6)
Potassium 3.3 L mmol/L
(3.5-5.1)
Glucose 113 H mg/dl
(70-99)
AST 40 H U/L
(14-36)
05/27/24 07:29
05/27/24 07:29
Vital Signs
Initial and Last Documented VS:
Initial Vital Signs
Temp Pulse Resp BP Pulse Ox
98 F 90 24 120/84 100
05/27/24 06:00 05/27/24 06:00 05/27/24 06:00 05/27/24 06:00 05/27/24 06:00
Last Documented Vital Signs
Temp Pulse Resp BP Pulse Ox
98 F 85 16 123/70 98
05/27/24 06:00 05/27/24 08:46 05/27/24 08:46 05/27/24 08:46 05/27/24 08:46
<Remy Ramirez MD - Last Filed: 05/27/24 09:37>
Orders/Labs/Results
Orders:
Orders
05/27/24 07:29
Complete Blood Count/With Diff Urgent
Comprehensive Metabolic Panel Urgent
Lipase Urgent
05/27/24 08:09
CT Abd/pel W Iv And Oral Contr Urgent
Comment:
Reason For Exam: left sided abd pain hx of diveritcil/colitis
Iohexol [Omnipaque] See Protocol PO NOW STA
05/27/24 08:10
Morphine Sulfate 2 mg IV NOW STA
05/27/24 08:11
0.9% Sodium Chloride 1000 ml [Nss] 1,000 ml IV BOLUS
Ondansetron Injectable [Zofran] 4 mg IV NOW STA
05/27/24 08:13
UA Reflex to Culture [Urinalysis Reflex To Culture] Urgent
05/27/24 08:33
PT/INR [Prothrombin Time] Urgent
05/27/24 09:52
Potassium Chloride [KCl] 40 meq PO NOW STA
Abnormal Lab Results
05/27/24 05/27/24
07:29 08:33
MCH 31.7 H pg
(27.0-31.0)
MPV 10.8 H fL
(7.4-10.4)
Absolute Lymphs (auto) 0.9 L 10^3/uL
(1.2-3.4)
Neutrophils % 77.5 H %
(42.2-75.2)
Lymphocytes % 14.3 L %
(20.5-51.1)
PT 34.7 H Sec
(11.4-14.6)
Potassium 3.3 L mmol/L
(3.5-5.1)
Glucose 113 H mg/dl
(70-99)
AST 40 H U/L
(14-36)
05/27/24 07:29
05/27/24 07:29
Vital Signs
Initial and Last Documented VS:
Initial Vital Signs
Temp Pulse Resp BP Pulse Ox
98 F 90 24 120/84 100
12/25/24 06:00 05/27/24 06:00 05/27/24 06:00 05/27/24 06:00 05/27/24 06:00
Last Documented Vital Signs
Temp Pulse Resp BP Pulse Ox
98 F 85 16 123/70 98
05/27/24 06:00 05/27/24 08:46 05/27/24 08:46 05/27/24 08:46 05/27/24 08:46
<ROE Graves - Last Filed: 05/27/24 11:28>
MDM/Problems Addressed
Differential Diagnosis Includes:
Not not limited to viral syndrome, dehydration, colitis, diverticulitis
MDM/Problems Addressed:
Patient is a 69 yr old female who complains of nausea vomiting diarrhea and abdominal discomfort for the past several days. She does have a history of colitis in the past. She presents awake alert no acute distress abdomen soft very minimal
tenderness. Patient was given fluids along with pain medication and Zofran. No vomiting. CAT scan negative.
Patient is nontoxic in no acute distress will DC with Tylenol as needed for pain and Zofran. Patient is on Coumadin and therefore cannot take ibuprofen. Her INR was 3.41. Her potassium was minimally low and she was given oral K-Dur discussed
close outpatient follow family doctor in the next week to have potassium rechecked
Chronic conditions affecting care:
On Coumadin for valve replacement history of colitis
<ROE Graves - Last Filed: 05/27/24 11:28>
*Radiology
Radiology exam reviewed: radiology read reviewed
*Pulse Oximetry
Patient hypoxic: no
*Critical Care Note
Total Time (30-74mins, 75-104mins- exclusive of procedures): Not Applicable
ED Attending Note
<ROE Graves - Last Filed: 05/27/24 11:28>
-
Portions of this chart may have been created with voice recognition software.� Occasional wrong word or��sound alike� substitutions may have occurred due to the inherent limitations of voice recognition software.
<Remy Ramirez MD - Last Filed: 05/27/24 09:37>
ED Attending Note
Patient seen and examined by attending physician: Yes
ED Attending Note:
I have seen and evaluated the patient with a [id number] encounter. I have spoken to the advance practicer provider and involved in the medical history, the physical exam, medical decision making.
Evaluation and management service: agree unless noted differently below.
Results interpretation: agree unless noted differently below.
Focused HPI: 69-year-old female with a history as documented presents to the ER for evaluation of abdominal pain with nausea/vomiting/diarrhea. Patient reports that symptoms have been gradually worsening really over 2 weeks but particularly since
Saturday. She says that initially she was constipated on Saturday and then Saturday started with abdominal discomfort, diarrhea, nausea, vomiting. She says that she was up all night last night vomiting and so she finally decided to come to the ER
for evaluation. She says that she did have a subjective fever at home over the past few days. She said that she does have a history of known diverticulosis.
Physical exam: Awake alert nontoxic. Vitals normal. Abdomen soft, tender to palpation left lower quadrant with voluntary guarding.
Medical Decision Makin-year-old female presents for evaluation of abdominal pain with nausea/vomiting/diarrhea. Vitals and exam as above. She had labs sent off including a CBC and a CMP that she had mild hypokalemia which we will replete.
Will plan to send for CT abdomen pelvis. She received fluids, morphine, Zofran with symptom improvement. Monitor and reassess after the above.
Discharge Plan
Departure
Patient Disposition: Home (Routine Discharge)
Date of Disposition: 05/27/24
Time of Disposition: 11:22
Patient with high blood pressure during this ER visit?: No
Covid-19: Not Applicable
Discharge Problem:
Nausea vomiting and diarrhea
Instructions: Diarrhea in teens and adults, Nausea and Vomiting, Adult (DC)
Prescriptions:
New
ondansetron 4 mg tablet,disintegrating
4 mg PO Q8H PRN (Reason: nausea and vomiting) Qty: 10 0RF
No Action
Combivent Respimat 1 PUFF mist
2 puff inhalation DAILYPRN PRN (Reason: SHORTNESS OF BREATH)
amlodipine 5 MG tablet
5 mg PO DAILY
gabapentin 300 MG capsule
1,200 mg PO HS
gabapentin 300 MG capsule
600 mg PO DAILY
escitalopram oxalate 20 MG tablet
20 mg PO DAILY
warfarin [Jantoven] 2 MG tablet
4 mg PO DAILY
Patient Comments:
Per patient: she tests her INR at home and calls in to get adjusted dosing - very inconconsistent. Goal INR 3 - 3.5 per patient
esomeprazole magnesium [Nexium] 40 MG capsule,delayed release(DR/EC)
40 mg PO DAILYPRN PRN (Reason: gerd)
alprazolam 0.25 MG tablet
0.25 mg PO BIDPRN PRN (Reason: anxiety)
Patient Comments:
11/10/2020: last filled 08/06/20, 30 tabs for 15 days from [facility]
aspirin 81 MG tablet,chewable
81 mg PO DAILY 0RF
enoxaparin 60 MG/0.6 ML syringe
60 mg SC Q12H 2 Days Qty: 4 0RF
Rx Instructions:
Preop
hydromorphone [Dilaudid] 2 mg tablet
2 mg PO Q6H PRN (Reason: pain) Qty: 8 0RF
cetirizine [Zyrtec] 10 mg Tablet
10 mg PO DAILY
acetaminophen 500 mg Tablet
1,000 mg PO Q6H PRN (Reason: pain)
doxycycline hyclate 100 mg tablet
100 mg PO DAILY
clonazepam 0.5 mg tablet
0.5 mg PO TID PRN (Reason: anxiety) Qty: 20 0RF
prednisone 20 mg tablet
40 mg PO DAILY Qty: 8 0RF
hydromorphone [Dilaudid] 2 mg tablet
2 mg PO Q6H PRN (Reason: Pain) Qty: 8 0RF
prochlorperazine maleate [Compazine] 10 mg tablet
10 mg PO TID PRN (Reason: nausea and vomiting) Qty: 6 0RF
hydromorphone [Dilaudid] 2 mg tablet
2 mg PO Q6H PRN (Reason: Pain) Qty: 8 0RF
prednisone 20 mg tablet
40 mg PO DAILY Qty: 8 0RF
cyclobenzaprine 10 mg tablet
10 mg PO TID PRN (Reason: spasm) Qty: 10 0RF
prednisone 10 mg Tablet
See Rx Instructions .ROUTE .COMPLEX Qty: 30 0RF
Rx Instructions:
Take By Mouth:
40 mg daily x3 days, 30 mg daily x3 days,
20 mg daily x3 days, 10 mg daily x3 days.
Referrals:
Giulia Lindo MD [Family Provider] -
Activity Restrictions/Additional Instructions:
As discussed you have a viral syndrome. Stay well-hydrated. Clear liquids for the first 24 hours followed by bland solid foods. A prescription for nausea medicine, Zofran was sent to your pharmacy take as directed.
In addition you were given 1 dose of potassium here in the ER as your potassium level was low. Please have this rechecked by your family doctor in the next week.
Once you begin to eat solid foods increase potassium rich foods including green leafy vegetables potatoes bananas orange juice
Interventions
Interventions:
*Risk Screen - Suicide Last Done: 05/27/24 06:00
*General Assessment Last Done: 05/27/24 08:46
*Neglect/Abuse Screening Last Done: 05/27/24 06:00
ED- Fall Risk Assessment Last Done: 05/27/24 07:43
*ED COVID-19 Vaccine History Last Done: 05/27/24 08:46
ZK-Gmcadn-Gaxtgdgeyq Assessment Last Done: 05/27/24 07:43
Discharge Date and Time
Print Language: ROMANIAN
[2024-05-27] MEDS: NSS 1000 IV (08:28)
[2024-05-27] MEDS: OMNIPAQUE 50 ML PO (08:30)
[2024-05-27] MEDS: MORPHINE SULFATE 2 MG IV (08:30)
[2024-05-27] MEDS: ZOFRAN 4 MG IV (08:30)
[2024-05-27 08:46] VITALS: BP 123/70
[2024-05-27 08:59] LABS: INR 3.41; PT 34.7 Sec (11.4-14.6)
[2024-05-27] MEDS: KCL 40 MEQ PO (09:59)
== END 2024-05-27 11:52 | disposition home or self-care (01) ==
LOC: EMR 05:58
PROVIDERS: Nurse Practitioner; EMERGENCY PHYSICIAN Emergency Medicine; FAMILY PHYSICIAN Internal Medicine
DX: R11.2 Nausea with vomiting, unspecified (principal); R19.7 Diarrhea, unspecified; J45.909 Unspecified asthma, uncomplicated; M79.7 Fibromyalgia; K21.9 Gastro-esophageal reflux disease without esophagitis; I10 Essential (primary) hypertension; I38 Endocarditis, valve unspecified; F41.9 Anxiety disorder, unspecified; F17.210 Nicotine dependence, cigarettes, uncomplicated
CPT/HCPCS: 99284; 96374; 96375; 96361; 74177; 80053; 83690; 85025; 85610; Q9967

== ENCOUNTER → 2024-08-27 13:32 | Outpatient (REF) | payer MEDICARE, OTHER, SELFPAY | LOC: PAVMRI 13:32 | PROVIDERS: ATTENDING PHYSICIAN Specialist; FAMILY PHYSICIAN Internal Medicine | DX: M70.62 Trochanteric bursitis, left hip (principal); Z96.642 Presence of left artificial hip joint | CPT/HCPCS: 73721 ==

== ENCOUNTER → 2025-02-16 13:47 | Outpatient (REF) | payer MEDICARE, OTHER, SELFPAY ==
[2025-02-16 15:50] LABS: Blood Urea Nitrogen 16 mg/dl (7-17)
== END ==
LOC: REG 13:47
PROVIDERS: ATTENDING PHYSICIAN Student in an Organized Health Care Education/Training Program
DX: R22.0 Localized swelling, mass and lump, head (principal)
CPT/HCPCS: 36415; 82565; 84520

== ENCOUNTER → 2025-02-18 12:56 | Outpatient (REF) | payer MEDICARE, OTHER, SELFPAY | LOC: RAD 12:56 | PROVIDERS: ATTENDING PHYSICIAN Student in an Organized Health Care Education/Training Program; FAMILY PHYSICIAN Internal Medicine | DX: R22.0 Localized swelling, mass and lump, head (principal) | CPT/HCPCS: 70491; Q9967 ==

== ENCOUNTER → 2025-04-19 12:00 | Outpatient (REF) | payer MEDICARE, OTHER, SELFPAY ==
[2025-04-19 13:22] LABS: Hematocrit 41.8 % (37.0-47.0); Hemoglobin 13.9 g/dL (12.0-16.0); Mean Corp Hgb Conc. 33.3 g/dL (33.0-37.0); Mean Corpuscular Volume 91.3 fL (81.0-99.0); Nucleated Red Blood Cells % 0 %; Platelet Count 404 10^3/uL (130-400); Red Cell Dist. Width 13.7 % (11.5-14.5)
[2025-04-19 14:55] LABS: ALT (SGPT) 17 U/L (0-35); AST (SGOT) 25 U/L (14-36); Albumin 4.9 g/dl (3.5-5.0); Blood Urea Nitrogen 15 mg/dl (7-17); Calcium 10.5 mg/dl (8.4-10.2); Carbon Dioxide 30 mmol/L (22-30); Chloride 102 mmol/L (98-107); Glucose 136 mg/dl (70-99); HDL Cholesterol 101 mg/dl; LDL Cholesterol, Calculated 87 mg/dl; Potassium 4.5 mmol/L (3.5-5.1); Sodium 137 mmol/L (135-145); Very Low Density Lipoprotein 33 mg/dl (0-30); eGFR > 60.00
== END ==
LOC: RCS 12:00
PROVIDERS: ATTENDING PHYSICIAN Internal Medicine Cardiovascular Disease; FAMILY PHYSICIAN Internal Medicine
DX: Z95.2 Presence of prosthetic heart valve (principal); I34.0 Nonrheumatic mitral (valve) insufficiency; E78.00 Pure hypercholesterolemia, unspecified; I10 Essential (primary) hypertension; Z79.01 Long term (current) use of anticoagulants
CPT/HCPCS: 36415; 80061; 80069; 84450; 84460; 85025; 93306